=== PATIENT | male | born 1950 | race Two or more races ===

== ENCOUNTER 2016-11-21 04:52 | Emergency (ER) | payer MEDICARE ==
[~2016-11-21] VITALS: Ht 177.8 cm; Wt 101.0 kg
[~2016-11-21 04:52] MED LIST: ASPI81TA82 PO; CITA20TA4 PO; CLON0.5T PO; LISI-360 PO; PERC5TAB12 PO; PRED50TA PO; ZOCO40TA PO; ZOVI800T13 PO
[2016-11-21 05:01] VITALS: BP 113/70; PULSE 73; RESP 16; TEMP 98.4; O2SAT 97
== END 2016-11-21 07:07 | disposition left against medical advice (07) ==
LOC: PHED 04:52
DX: R68.89 Other general symptoms and signs (principal)
CPT/HCPCS: 99281

== ENCOUNTER 2016-11-23 09:31 | Emergency (ER) | payer MEDICARE ==
[~2016-11-23] VITALS: Ht 177.8 cm; Wt 97.0 kg
[2016-11-23 09:35] VITALS: BP 117/68; PULSE 60; RESP 16; TEMP 97.5; O2SAT 99
[2016-11-23] MEDS ORDERED: CENTTAB PO (09:57)
[2016-11-23] MEDS ORDERED: CLON.5 PO (09:57)
[2016-11-23] MEDS ORDERED: LORA10TA PO (09:57)
[2016-11-23] MEDS ORDERED: CITA20TA4 PO (09:57)
[2016-11-23] MEDS ORDERED: LISI10TA3 PO (09:57)
[2016-11-23] MEDS ORDERED: SIMV20TA PO (09:57)
[2016-11-23] MEDS ORDERED: ASPI1TAB69 PO (09:57)
[2016-11-23] MEDS ORDERED: SODIUM CHLORID 0.9% 500 ML INJ 500 ML IV ONE (10:00)
--- NOTE | 2016-11-23 10:01 | PD ---
HPI Chief Complaint: GI Complaint Time Seen by Provider: 09:39 Travel History International Travel<30 days: No Contact w/Intl Traveler<30days: No Traveled to known affect area: No History of Present Illness HPI 66-year-old male presents with yellow colored nonbloody diarrhea that has been present for the past couple of days. He states he went to an urgent care when it first started and they placed him on Keflex and cortisone and he feels like it is getting worse. He denies any vomiting, fever, abdominal pain or other concurrent complaints. He states he still has a good appetite. He states that he is concerned because the diarrhea persists. He denies other modifying factors. PFSH Past Medical History Arthritis: Yes Anxiety: Yes Depression: Yes High Cholesterol: Yes Diminished Hearing: No Hypertension: Yes Tetanus Vaccination: < 5 Years Influenza Vaccination: Yes Social History Alcohol Use: Yes (2 BEERS DAILY) Tobacco Use: No Substance Use: No Allergies-Medications (Allergen,Severity, Reaction): Coded Allergies: Iodine (Verified Allergy, Intermediate, Hives, 11/23/16) Reported Meds & Prescriptions Reported Meds & Active Scripts Active Reported Loratadine 10 Mg Tab 10 Mg PO DAILY Aspirin 81 Mg Tabdr 81 Mg PO DAILY Centrum Silver (Multiple Vitamins W/ Minerals) 1 Tab 1 Tab PO DAILY Simvastatin 20 Mg Tab 20 Mg PO DAILY Lisinopril 10 Mg Tab 10 Mg PO DAILY Citalopram (Citalopram Hydrobromide) 20 Mg Tab 20 Mg PO BID Klonopin (Clonazepam) 0.5 Mg Tab 2 Tab PO BID Review of Systems Except as stated in HPI: all other systems reviewed are Neg Physical Exam Narrative GENERAL: Well-nourished, well-developed patient. SKIN: Warm and dry. HEAD: Normocephalic and atraumatic. EYES: No injection or drainage. ENT: No nasal drainage noted. NECK: Supple, trachea midline. CARDIOVASCULAR: Regular rate and rhythm RESPIRATORY: No increased effort. No accessory muscle use. GASTROINTESTINAL: Abdomen soft, non-tender, nondistended. NEUROLOGICAL: Awake and alert. Motor and sensory grossly within normal limits. Normal speech. Data Data Last Documented VS Vital Signs Date Time Temp Pulse Resp B/P Pulse Ox O2 Delivery O2 Flow Rate FiO2 11/23/16 10:47 56 16 107/64 98 11/23/16 09:35 97.5 Orders Complete Blood Count With Diff (11/23/16 09:49) Basic Metabolic Panel (Bmp) (11/23/16 09:49) Sodium Chlorid 0.9% 500 Ml Inj (Ns 500 M (11/23/16 10:00) Labs Laboratory Tests Test 11/23/16 10:00 White Blood Count 4.7 TH/MM3 Red Blood Count 4.75 MIL/MM3 Hemoglobin 14.9 GM/DL Hematocrit 44.8 % Mean Corpuscular Volume 94.2 FL Mean Corpuscular Hemoglobin 31.4 PG Mean Corpuscular Hemoglobin 33.3 % Concent Red Cell Distribution Width 13.1 % Platelet Count 184 TH/MM3 Mean Platelet Volume 8.3 FL Neutrophils (%) (Auto) 57.4 % Lymphocytes (%) (Auto) 22.6 % Monocytes (%) (Auto) 18.3 % Eosinophils (%) (Auto) 1.1 % Basophils (%) (Auto) 0.6 % Neutrophils # (Auto) 2.6 TH/MM3 Lymphocytes # (Auto) 1.1 TH/MM3 Monocytes # (Auto) 0.9 TH/MM3 Eosinophils # (Auto) 0.1 TH/MM3 Basophils # (Auto) 0.0 TH/MM3 CBC Comment DIFF FINAL Differential Comment Sodium Level 142 MEQ/L Potassium Level 3.8 MEQ/L Chloride Level 108 MEQ/L Carbon Dioxide Level 27.5 MEQ/L Anion Gap 7 MEQ/L Blood Urea Nitrogen 18 MG/DL Creatinine 1.10 MG/DL Estimat Glomerular Filtration 67 ML/MIN Rate Random Glucose 80 MG/DL Calcium Level 8.1 MG/DL [facility] Medical Decision Making Medical Screen Exam Complete: Yes Emergency Medical Condition: Yes Medical Record Reviewed: Yes (past history confirmed) Interpretation(s) CBC & BMP Diagram 11/23/16 10:00 Differential Diagnosis Gastroenteritis, colitis, C. difficile... Narrative Course We'll check basic blood work and dose with IV fluids if can give stool here Will check for C. difficile and can follow up outpatient. Patient agrees to workup as ordered unable to give stool sample here, Patient denies any new complaints, all questions answered. Patient knows that follow up is incumbent on them and to return to the emergency room immediately if new or worsening symptoms develop. Patient given strict return precautions, vitals reviewed and are normal, agrees to further workup as an outpatient. Diagnosis Primary Impression: Diarrhea Qualified Code: R19.7 - Diarrhea, unspecified type Patient Instructions: General Instructions Additional Instructions: return as needed, follow with primary this week for recheck, keep hydrated Med/Other Pt SpecificInfo: No Change to Meds Disposition: 01 DISCHARGE HOME Condition: Stable Brittany Carpio MD Nov 23, 2016 10:01
[2016-11-23 10:09] LABS: AUTOMATED NEUTROPHIL # 2.6 TH/MM3 (1.8-7.7); BASOPHIL % 0.6 % (0.0-2.0); EOSINOPHIL # 0.1 TH/MM3 (0-0.4); EOSINOPHIL % 1.1 % (0.0-4.0); HEMATOCRIT 44.8 % (39.0-51.0); HEMO FLAGS DIFF FINAL; LYMPH % 22.6 % (9.0-44.0); LYMPHOCYTE # 1.1 TH/MM3 (1.0-4.8); MEAN CELL VOLUME 94.2 FL (80.0-100.0); MEAN CORPUSCULAR HEMOGLOBIN 31.4 PG (27.0-34.0); MEAN CORPUSCULAR HGB CONC 33.3 % (32.0-36.0); MONO % 18.3 % (0.0-8.0); NEUT % 57.4 % (16.0-70.0); PLATELET COUNT 184 TH/MM3 (150-450); RED BLOOD COUNT 4.75 MIL/MM3 (4.50-5.90); RED CELL DISTRIBUTION WIDTH 13.1 % (11.6-17.2); WHITE BLOOD COUNT 4.7 TH/MM3 (4.0-11.0)
[2016-11-23 10:16] LABS: POTASSIUM 3.8 MEQ/L (3.5-5.1)
[2016-11-23 10:19] LABS: BICARBONATE 27.5 MEQ/L (21.0-32.0)
[2016-11-23 10:47] VITALS: BP 107/64; PULSE 56; RESP 16; O2SAT 98
== END 2016-11-23 11:04 | disposition home or self-care (01) ==
LOC: PHED 09:31
DX: R19.7 Diarrhea, unspecified (principal); E78.00 Pure hypercholesterolemia, unspecified; I10 Essential (primary) hypertension
CPT/HCPCS: 80048; 85025; 99284; J7040